=== PATIENT | male | born 1980 | race Caucasian/White ===

== ENCOUNTER 2018-11-30 09:40 | Emergency (ER) | payer OTHER ==
--- NOTE | 2018-11-30 10:01 | ED Physician Documentation ---
General Adult - HISTORIAN Historian: patient - HPI Stated Complaint: alcohol intoxication Chief Complaint: General Adult Onset: days ago Timing: still present Severity: moderate Further Comments: yes (Pt is a 38 yo male who has been on a drinking binge for 8 days, drinking a fifth of hard liquor daily, who says he wants help with alcohol rehabilitation. Pt denies other substance abuse, though he says he smokes cigarettes and marijuana. No other drugs. Pt states that he has been dx'd with HTN and had been rx'd clonodine, but he has not been taking it for some time.) - ROS CONST: other (alcohol intoxication) EYES/ENT: none CVS/RESP: none GI/: none MS/SKIN/LYMPH: none NEURO/PSYCH: other (alcohol abuse) - PAST HX Past History: other (HTN) Other History: other (alcoholism) Allergies/Adverse Reactions: Allergies Allergy/AdvReac Type Severity Reaction Status Date / Time No Known Allergies Allergy Verified 11/30/18 10:11 Home Medications: Ambulatory Orders Medication Instructions Recorded NK 11/30/18 - SOCIAL HX Smoking History: cigarettes Alcohol Use: heavy Drug Use: marijuana - FAMILY HX Family History: No (unk) - VITAL SIGNS Vital Signs: Vital Signs Temp Pulse Resp BP Pulse Ox 118/74 08/09/12 07:29 - REVIEWED ASSESSMENTS Nursing Assessment Reviewed: Yes Vitals Reviewed: Yes Progress - Progress Progress: Banana bag IVF Pt left ER AMA. Pt eloped without discharge paperwork. General Adult Physical Exam - PHYSICAL EXAM GENERAL APPEARANCE: moderate distress EENT: eye inspection normal, pharynx normal NECK: normal inspection, supple RESPIRATORY: no resp distress, chest non-tender, breath sounds normal CVS: reg rate & rhythm, heart sounds normal ABDOMEN: soft, no organomegaly, normal bowel sounds BACK: normal inspection, no CVA tenderness SKIN: warm/dry, normal color EXTREMITIES: non-tender, normal range of motion, no evidence of injury, no edema NEURO: oriented X3, motor nml, sensation nml, other (alcohol intoxication) Discharge Clincal Impression: Alcohol abuse Referrals: Zachary Hager MD [Primary Care Provider] - Condition: Fair Disposition: AGAINST MEDICAL ADVICE Decision to Admit: NO Decision Time: 11:15
[2018-11-30] MEDS ORDERED: THIAMINE HCL 100 MG, MULTIVIT INFUSN,ADULT 1,VIT K 10 ML, FOLIC ACID 5 MG in 0.9 % SODI... IV ONE (10:11)
[2018-11-30] MEDS ORDERED: THIAMINE HCL 200 MG/2 ML VIAL ONE (10:36)
[2018-11-30] MEDS ORDERED: 0.9 % SODIUM CHLORIDE 1,000 ML IV ONE (10:36)
[2018-11-30 10:37] LABS: BASOPHILS % 0.5 % (0.0-1.5); NEUTROPHILS # 4.8 # k/uL (1.4-7.7)
[2018-11-30] MEDS ORDERED: MULTIVIT INFUSN,ADULT 1,VIT K 10 ML VIAL IV ONE (10:38)
[2018-11-30] MEDS ORDERED: FOLIC ACID 5 MG/1 ML ONE (10:40)
[2018-11-30 10:48] LABS: eGFR (Non-African) > 60
[2018-11-30 11:10] VITALS: BP 145/86
[2018-11-30 15:38] LABS: APPEARANCE,URINE CLEAR (CLEAR); COLOR,URINE YELLOW (YELLOW); OCCULT BLOOD,URINE TRACE (NEGATIVE); PH URINE 6.5 (5.0 - 8.0); UROBILINOGEN URINE 0.2 Eu (0.2-1.0)
[2018-12-01 06:36] LABS: CANNABINOIDS NON NEGATIVE ng/mL (< 50); METHYLENEDIOXYMETHAMPHETAMINE NEGATIVE ng/mL (<500)
== END 2018-11-30 11:00 | disposition left against medical advice (07) ==
LOC: ED 09:40
DX: F10.129 Alcohol abuse with intoxication, unspecified (principal); Y90.9 Presence of alcohol in blood, level not specified
CPT/HCPCS: 80053; 80320; 80377; 81002; 85025; 96374; 99282; 99283; G0480; G0481; S1016